=== PATIENT | male | born 1945 | race Caucasian/White ===

== ENCOUNTER 2018-02-17 09:16 | Emergency (ER) | payer MEDICAID ==
[2018-02-17] MEDS: DIPHTH/TET/ACEL PERTUSS (ADULT) 0.5 ML VIAL IM (10:07)
[2018-02-17] MEDS: LIDOCAINE 2%/EPI MPF (SDV) 20 ML VIAL INJ (10:31)
== END 2018-02-17 11:05 | disposition home or self-care (01) ==
LOC: FTE 09:16
DX: S81.812A Laceration without foreign body, left lower leg, initial encounter (principal); I10 Essential (primary) hypertension; W26.8XXA Contact with other sharp object(s), not elsewhere classified, initial encounter; Y92.9 Unspecified place or not applicable; Z23 Encounter for immunization
CPT/HCPCS: 12002; 90471; 90715; 99283-25

== ENCOUNTER 2018-02-19 09:12 | Emergency (ER) | payer MEDICAID | END 2018-02-19 09:56 | disposition home or self-care (01) | LOC: FTE 09:12 | DX: Z48.01 Encounter for change or removal of surgical wound dressing (principal); I10 Essential (primary) hypertension | CPT/HCPCS: 99281; Z7502 ==

== ENCOUNTER 2018-02-28 15:30 | Emergency (ER) | payer MEDICAID | END 2018-02-28 17:40 | disposition home or self-care (01) | LOC: FTE 15:30 | DX: Z48.02 Encounter for removal of sutures (principal); I10 Essential (primary) hypertension | CPT/HCPCS: 99281; Z7502 ==